=== PATIENT | male | born 1955 | race Caucasian/White ===

== ENCOUNTER 2019-01-18 06:24 | Day surgery (SDC) | payer MEDICARE, BC ==
[~2019-01-18 06:24] MED LIST: Dextrose 5%-0.45% NaCl 1,000 ML IV SCH; Midazolam 1 MG/ML 2 ML SDV ONE; Sodium Chloride 0.9% 10 ML Syringe FLUSH PRN; fentaNYL 100 MCG/2 ML SDV ONE
[2019-01-18] MEDS ORDERED: Midazolam 1 MG/ML 2 ML SDV IV ONE ×3 (06:25→07:33)
[2019-01-18] MEDS ORDERED: fentaNYL 100 MCG/2 ML SDV IV ONE ×3 (06:25→07:32)
--- NOTE | 2019-01-18 13:31 | OR ---
DATE: 01/18/2019 PROCEDURE PERFORMED: Esophagogastroduodenoscopy, narrowband imaging, and multiple pinch biopsies. INSTRUMENT USED: [id number]-HQ190 Olympus video panendoscope. PREMEDICATIONS: No oral or topical anesthesia used. Fentanyl 100 mcg intravenous, Versed 2 mg intravenous. The procedure was done under pulse oximetry, BP recording, and rn cardiac. INDICATION: The patient with persistent dyspepsia, chronic diarrhea, unexplained and not responsive to medical measures. Esophagogastroduodenoscopy is performed for detection of any active erosive lesions, [place] esophagus and/or malignancy also under consideration, H. pylori status to be determined, small bowel biopsies to be obtained for celiac disease, endoscopic hemostasis therapy if needed. DESCRIPTION OF PROCEDURE: The scope was passed with ease. Adequate visualization of the esophagus was made from proximal to distal areas. No upper esophageal lesions identified. No distal esophageal stricture. No uphill or downhill esophageal varices. No Omayra-Young tear. No evidence of erosive esophagitis by [place] criteria. No esophageal polyp or tumor mass identified. Z-line was seen at around 40 cm distal to the oral verge, configuration consistent with grade 1 by ZAP classification. No proximal gastric varices noted. Gastric fundus examination by retroflexion showed no polypoid lesions. No gastric ulcer, malignant mass, or vascular ectasia identified. Scattered antral erosions were noted without bleeding from them. Duodenal bulb showed multiple less than 1 cm sized benign-appearing ulcers without bleeding from them. No visible vessel identified. Visualized second part of the duodenum was unremarkable. Multiple pinch biopsies, 4 in number, were taken from different areas of the second part of the duodenum and tissues were also obtained from the duodenal bulb in 9 and 12 o'clock positions and sent for any histopathologic evidence of celiac disease. Multiple pinch biopsies were also taken from the gastric antrum and proximal body and sent for PyloriTek test for H. pylori and histopathology. NBI views were obtained of the duodenal bulb. No bleeding was noted from any of the visualized areas at the completion of examination. Photographs were taken of the duodenal bulb, gastric antrum, fundus, and distal esophagus. IMPRESSION: 1. Duodenal bulb ulcers. 2. Gastric antral erosions. The patient tolerated the procedure well. [facility] /[id number]
== END 2019-01-18 09:45 | disposition home or self-care (01) ==
LOC: DL.ENDO 06:24
PROVIDERS: ATTEND Internal Medicine Gastroenterology
DX: K29.80 Duodenitis without bleeding (principal); K26.9 Duodenal ulcer, unspecified as acute or chronic, without hemorrhage or perforation; K31.9 Disease of stomach and duodenum, unspecified; K52.9 Noninfective gastroenteritis and colitis, unspecified; F17.210 Nicotine dependence, cigarettes, uncomplicated; F10.20 Alcohol dependence, uncomplicated; Z98.890 Other specified postprocedural states
CPT/HCPCS: 43239; 87077; J2250; J3010; J7042

== ENCOUNTER → 2019-01-19 | Day surgery (SDC) | payer MEDICARE, BC ==
[~2019-01-19] MED LIST changes: +Midazolam 1 MG/ML 2 ML SDV IV ONE; -Sodium Chloride 0.9% 10 ML Syringe FLUSH PRN; +fentaNYL 100 MCG/2 ML SDV IV ONE
--- NOTE | 2019-01-19 10:13 | OR ---
DATE: 01/19/2019 PROCEDURES: Total colonoscopy, terminal ileoscopy, NBI, cold snare polypectomy, and multiple pinch biopsies. INSTRUMENT USED: [id number]-H190DL Olympus video colonoscope. PREMEDICATIONS: Fentanyl 100 mcg intravenous, Versed 4 mg intravenous, nasal O2 cannula. The procedure was done under pulse oximetry, BP recording, and child monitor. INDICATION: The patient with chronic diarrhea, unexplained and not responsive to medical measures. Colonoscopic examination is done for detection of any polypoid lesions and removal, biopsies to be obtained for any evidence of microscopic colitis, endoscopic hemostasis therapy if needed. DESCRIPTION OF PROCEDURE: Initial rectal exam showed BPH. Rigid anoscopy was normal. Colonoscope was passed with ease. Scattered diverticula were noted in the colon. In the mid sigmoid colon, 5 mm size benign appearing polyp was noted, photograph was obtained, cold snare polypectomy was done, the tissue was retrieved and sent for histopathology. The scope was passed with ease up to and beyond the ileocecal junction to visualize normal appearing terminal ileum. NBI view was obtained of the terminal ileum, photographs were taken, multiple pinch biopsies were obtained. No bleeding was noted from any of the visualized areas at the commencement of the examination. The bowel preparation was found to be adequate, [place] scale 2 in all the regions. No stricture, no vascular ectasia. No large isolated ulcerations seen. No evidence of diffuse inflammatory bowel disease in the form of friability, contact bleeding, or ulcerations. Photographs were taken of the normal appearing cecum. Probing the proximal sides of folds and flexures using adequate distention and clearing up the stool material, withdrawal of the scope was made. Multiple pinch biopsies were taken from the normal appearing mucous of the mid transverse colon, mid descending colon, and rectosigmoid, and sent for histopathologic evidence of microscopic colitis. No bleeding was noted from any of the visualized areas at the completion of examination. IMPRESSION: 1. Sigmoid colonic polyp. 2. Diverticulosis. The patient tolerated the procedure well. [facility] /[id number]
== END | disposition home or self-care (01) ==
LOC: DL.ENDO 06:25
PROVIDERS: ATTEND Internal Medicine Gastroenterology
DX: D12.5 Benign neoplasm of sigmoid colon (principal); K63.5 Polyp of colon; K57.30 Diverticulosis of large intestine without perforation or abscess without bleeding; F17.210 Nicotine dependence, cigarettes, uncomplicated; F10.20 Alcohol dependence, uncomplicated; Z98.890 Other specified postprocedural states
CPT/HCPCS: 45380; 45385; J2250; J3010; J7042

== ENCOUNTER 2019-11-02 16:55 | Emergency (ER) | payer OTHER, MEDICARE, BC ==
[2019-11-02] MEDS ORDERED: Iopamidol 612 MG/ML 100 ML Bottle IV ONE (16:56)
[2019-11-02] MEDS ORDERED: Lactated Ringers 1,000 ML IV ONE ×2 (17:01→18:05)
[2019-11-02 17:29] LABS: PTT,PARTIAL THROMBOPLSTIN TIME 24.2 SEC (22.0-34.0)
[2019-11-02 17:32] LABS: ANION GAP 14.8 mEq/L (7-13); CHLORIDE,CL 103 mmol/L (98-107); SODIUM,NA 138 mmol/L (136-145)
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
== END 2019-11-02 18:50 ==
LOC: DL.ED 16:55
DX: S62.323A Displaced fracture of shaft of third metacarpal bone, left hand, initial encounter for closed fracture (principal); S92.355A Nondisplaced fracture of fifth metatarsal bone, left foot, initial encounter for closed fracture; S42.102A Fracture of unspecified part of scapula, left shoulder, initial encounter for closed fracture; S22.42XA Multiple fractures of ribs, left side, initial encounter for closed fracture; S09.90XA Unspecified injury of head, initial encounter; V59.49XA Driver of pick-up truck or van injured in collision with other motor vehicles in traffic accident, initial encounter
CPT/HCPCS: 36415; 70450; 71260; 72125; 72128; 72131; 73130; 73600; 73620; 74177; 80053; 80305; 80307; 81001; 82150; 83690; 85025; 85610; 85730; 96360; 96361; 99285; J7120; Q9967